=== PATIENT | female | born 1940 | race Caucasian/White ===

== ENCOUNTER → 2019-03-28 | Outpatient (CLI) | payer MEDICARE, OTHER ==
[~2019-03-28] MED LIST: ASPI-817 PO; ATEN-51 PO; BENA20TA4 PO; CLOT15CR5 TOP; FLUC100T PO; IOHEXOL 100 ML ONE; LANT3I SC; LEVO125T7 PO; LIOT5TAB15 PO; METF500T24 PO; NITR-58 PO; NITROGLYCERIN AEROSOL (4.9 GM) SL PRN; NOVO3I SC; SOD CHLORIDE 0.9% 100 ML ONE; TEMA30CA PO
== END | disposition home or self-care (01) ==
LOC: C/S 09:30
PROVIDERS: ATTEND Internal Medicine
DX: R94.39 Abnormal result of other cardiovascular function study (principal)
CPT/HCPCS: 75571; 75574; Q9967